=== PATIENT | female | born 1965 | race Caucasian/White ===

== ENCOUNTER 2017-04-12 14:27 | Emergency (ER) | payer OTHER ==
[~2017-04-12] VITALS: Ht 165.1 cm; Wt 72.2 kg
[~2017-04-12 14:27] MED LIST: ALLERGY RELIEF10 M5 PO; AMBIEN10 MG PO; CARBATROL-ER200 MG PO; CETIRIZINE HCL10 M2 PO; CHANTIX1 MG PO; CLONAZEPAM1 MG PO; DILANTIN100 MG PO; KLONOPIN1 MG PO; LEVETIRACETAM1000 MG PO; LEVETIRACETAM750 MG PO; LOVASTATIN40 MG PO; MIRALAX255 GM PO; OXYCODONE HCL10 MG PO; PERCOCET 5/31 TABLET PO; PREDNISONE10 MG PO; PREMPRO 0.621 TABLET PO; RANITIDINE HCL150 MG PO; SINGULAIR10 MG PO; SUMATRIPTAN SU100 MG PO; TEGRETOL-XR,CA200 MG PO; TEGRETOL200 MG PO; TOPIRAMATE200 MG PO; VALIUM5 MG PO; VITAMIN D-32000 UNI2 PO; VYVANSE30 MG PO; ZIPRASIDONE HCL40 MG PO; ZIPRASIDONE HCL80 MG PO; dilantin; geodon; topamax
[2017-04-12 15:39] LABS: ADD MIUA? NO; BILIRUBIN NEGATIVE; BLOOD NEGATIVE; COLOR STRAW ((YELLOW)); GLUCOSE (STRIP) NEGATIVE; KETONES NEGATIVE; LEUKOCYTES NEGATIVE; NITRITE NEGATIVE; PROTEIN (STRIP) NEGATIVE; SPECIFIC GRAVITY 1.004 (1.000-1.030); UROBILINOGEN 0.2 MG/DL (0.2-1.0)
[2017-04-12 16:48] LABS: HEMATOCRIT 38.5 % (36.0-46.0); MCH 31.1 PG (29.0-34.0); MCHC 34.3 G/DL (30.0-36.0); MCV 90.8 FL (83-99); MEAN PLAT.VOLUME 10.1 uM^3 (9.5-12.4); PLATELET COUNT 205 K/uL (156-360); RBC DIS.WIDTH-CV 12.9 % (11.8-14.6); RBC DIS.WIDTH-SD 42.7 % (39-53); RED BLOOD COUNT 4.24 M/uL (3.80-5.20); WHITE BLOOD COUNT 4.9 K/uL (4.1-10.2)
[2017-04-12 17:00] LABS: CHLORIDE 112 mEq/L (99-109); POTASSIUM 3.9 mEq/L (3.7-5.4); SODIUM 139 mEq/L (136-147)
[2017-04-12 17:03] LABS: GLUCOSE 84 mg/dL (70-99)
[2017-04-12 17:04] LABS: ANION GAP 15 MEQ/L (2-14)
[2017-04-12 17:05] LABS: TOTAL BILIRUBIN 0.3 mg/dL (0.0-1.0)
[2017-04-12 17:06] LABS: ALKALINE PHOSPHATASE 81 IU/L (3-129)
[2017-04-12 17:07] LABS: GFR ESTIMATE (CALCULATED) > 59 mL/min/
[2017-04-12 17:08] LABS: DIRECT BILIRUBIN 0.1 mg/dL (0.0-0.3); UREA NITROGEN (BUN) 8 mg/dL (9-23)
[2017-04-12 17:10] LABS: LIPASE 39 U/L (1.0-51.0)
[2017-04-12 17:18] LABS: QUANTITATIVE HCG < 4.0 MIU/ML
[2017-04-12] MEDS ORDERED: ZOFRAN ODT4 MG PO (17:28)
[2017-04-12] MEDS ORDERED: BENTYL10 MG PO (17:28)
[2017-04-12 18:38] VITALS: BP 98/62
== END 2017-04-12 18:39 | disposition home or self-care (01) ==
LOC: EME 14:27
PROVIDERS: Nurse Practitioner Family
DX: R10.11 Right upper quadrant pain (principal); R11.2 Nausea with vomiting, unspecified; N89.8 Other specified noninflammatory disorders of vagina; R30.0 Dysuria; B19.20 Unspecified viral hepatitis C without hepatic coma; K74.60 Unspecified cirrhosis of liver
CPT/HCPCS: 71020; 76705; 80053; 81003; 82248; 83690; 84702; 85027; 99281; 99283

== ENCOUNTER 2017-10-15 14:39 | Emergency (ER) | payer OTHER ==
[~2017-10-15] VITALS: Ht 165.1 cm; Wt 77.5 kg
[~2017-10-15 14:39] MED LIST changes: +ANTIVERT12.5 MG PO; +AVENTYL,PAMELOR25 MG PO; +BENTYL10 MG PO; +BUSPAR10 MG PO; +COMBIVENT RESPIM4 GM IH; +DESYREL100 MG PO; +IMITREX100 MG PO; +KEPPRA1000 MG PO; +KEPPRA250 MG PO; +PRILOSEC20 MG PO; +SYMBICORT60 INHALAT IH; +TEGRETOL-XR,CA400 MG PO; +VYVANSE70 MG PO; +WELLBUTRIN XL300 MG PO; +ZOFRAN ODT4 MG PO
[2017-10-15 15:26] LABS: HEMATOCRIT 43.2 % (36.0-46.0); HEMOGLOBIN 14.7 G/DL (11.9-15.5); MCH 31.2 PG (29.0-34.0); MCV 91.7 FL (83-99); PLATELET COUNT 241 K/uL (156-360); RBC DIS.WIDTH-CV 13.2 % (11.8-14.6); RBC DIS.WIDTH-SD 44.5 % (39-53); RED BLOOD COUNT 4.71 M/uL (3.80-5.20); WHITE BLOOD COUNT 6.8 K/uL (4.1-10.2)
[2017-10-15 15:36] LABS: ALBUMIN 4.1 g/dL (3.2-4.8)
[2017-10-15 15:37] LABS: CHLORIDE 107 mEq/L (99-109); SODIUM 139 mEq/L (136-147)
[2017-10-15 15:39] LABS: GLUCOSE 117 mg/dL (70-99); TOTAL PROTEIN 7.3 g/dL (6.4-8.3)
[2017-10-15 15:41] LABS: TOTAL BILIRUBIN 0.3 mg/dL (0.0-1.0)
[2017-10-15 15:42] LABS: ALKALINE PHOSPHATASE 105 IU/L (3-129)
[2017-10-15 15:43] LABS: CREATININE 0.7 mg/dL (0.6-1.3); GFR ESTIMATE (CALCULATED) > 59 mL/min/
[2017-10-15 15:44] LABS: AST (GOT) 24 IU/L (2-34); UREA NITROGEN (BUN) 10 mg/dL (9-23)
[2017-10-15 15:45] LABS: ALT (GPT) 21 IU/L (3-49)
[2017-10-15 15:46] LABS: LIPASE 13 U/L (1.0-51.0)
[2017-10-15 15:54] LABS: QUANTITATIVE HCG < 4.0 MIU/ML
[2017-10-15 16:50] LABS: DIRECT BILIRUBIN 0.1 mg/dL (0.0-0.3)
[2017-10-15 17:05] LABS: APPEARANCE CLEAR ((CLEAR)); BILIRUBIN NEGATIVE; BLOOD SMALL; COLOR STRAW ((YELLOW)); GLUCOSE (STRIP) NEGATIVE; KETONES NEGATIVE; LEUKOCYTES NEGATIVE; NITRITE NEGATIVE; PROTEIN (STRIP) NEGATIVE; SPECIFIC GRAVITY 1.008 (1.000-1.030); UROBILINOGEN 0.2 MG/DL (0.2-1.0)
[2017-10-15 17:08] LABS: BACTERIA RARE /HPF; EPITHELIAL CELLS RARE /HPF; MUCUS NONE SEEN /LPF; RED BLOOD CELLS 0-5 /HPF (0-5); UCUL ADDED? NO; WHITE BLOOD CELLS 0-5 /HPF (0-5)
[2017-10-15 18:25] LABS: AMPHETAMINE NEGATIVE (500 ng/mL); BARBITURATES NEGATIVE (200 ng/mL); BENZODIAZEPINES NEGATIVE (150 ng/mL); BUPRENORPHINE NEGATIVE (10 ng/mL); COCAINE NEGATIVE (150 ng/mL); METHADONE NEGATIVE (200 ng/mL); METHAMPHETAMINE NEGATIVE (500 ng/mL); OPIATES (MORPHINE) NEGATIVE (100 ng/mL); OXYCODONE NEGATIVE (100 ng/mL); PHENCYCLIDINE NEGATIVE (25 ng/mL); PROPOXYPHENE NEGATIVE (300 ng/mL); THC CANNABINOIDS NEGATIVE (50 ng/mL); TRICYCLIC ANTIDEPRESSANTS NEGATIVE (300 ng/mL)
[2017-10-15 20:27] VITALS: BP 127/69
== END 2017-10-15 20:28 | disposition home or self-care (01) ==
LOC: EME 14:39
DX: R10.11 Right upper quadrant pain (principal); G89.29 Other chronic pain; R11.0 Nausea; J44.9 Chronic obstructive pulmonary disease, unspecified; E78.5 Hyperlipidemia, unspecified; K21.9 Gastro-esophageal reflux disease without esophagitis; B19.20 Unspecified viral hepatitis C without hepatic coma; F17.200 Nicotine dependence, unspecified, uncomplicated; F32.9 Major depressive disorder, single episode, unspecified; F41.9 Anxiety disorder, unspecified; Z87.820 Personal history of traumatic brain injury; Z88.5 Allergy status to narcotic agent; Z88.0 Allergy status to penicillin
CPT/HCPCS: 74176; 76705; 80053; 81003; 82248; 83605; 83690; 84702; 85027; 99281; 99285; J1200; J2405; J3010; J7040

== ENCOUNTER → 2017-10-18 | Outpatient (CLI) | payer OTHER | END | disposition home or self-care (01) | LOC: AMB 08:25 | DX: K29.70 Gastritis, unspecified, without bleeding (principal); K22.10 Ulcer of esophagus without bleeding; D13.0 Benign neoplasm of esophagus; Z86.010 Personal history of colon polyps; B18.2 Chronic viral hepatitis C; J44.9 Chronic obstructive pulmonary disease, unspecified; E03.9 Hypothyroidism, unspecified; F10.20 Alcohol dependence, uncomplicated; E53.8 Deficiency of other specified B group vitamins; Z87.820 Personal history of traumatic brain injury; F17.200 Nicotine dependence, unspecified, uncomplicated; Z82.49 Family history of ischemic heart disease and other diseases of the circulatory system; Z80.3 Family history of malignant neoplasm of breast; Z79.891 Long term (current) use of opiate analgesic; Z88.0 Allergy status to penicillin; Z88.5 Allergy status to narcotic agent; Z88.8 Allergy status to other drugs, medicaments and biological substances | CPT/HCPCS: 88305; 88342 TC; J3010 ==

== ENCOUNTER → 2017-11-08 | Outpatient (CLI) | payer OTHER | END | disposition home or self-care (01) | LOC: NUC 08:06 | DX: R11.2 Nausea with vomiting, unspecified (principal) | CPT/HCPCS: 78264; A9541 ==

== ENCOUNTER → 2018-01-10 | Outpatient (CLI) | payer OTHER ==
[~2018-01-10] VITALS: Ht 165.1 cm; Wt 71.7 kg
[~2018-01-10] MED LIST changes: +PREVACID30 MG PO
== END | disposition home or self-care (01) ==
LOC: AMB 10:42
DX: Z12.11 Encounter for screening for malignant neoplasm of colon (principal); D12.3 Benign neoplasm of transverse colon; K63.5 Polyp of colon; Z86.010 Personal history of colon polyps; K64.8 Other hemorrhoids; K59.00 Constipation, unspecified; R14.0 Abdominal distension (gaseous); M19.90 Unspecified osteoarthritis, unspecified site; F31.9 Bipolar disorder, unspecified; B18.2 Chronic viral hepatitis C; J44.9 Chronic obstructive pulmonary disease, unspecified; F17.200 Nicotine dependence, unspecified, uncomplicated; F10.21 Alcohol dependence, in remission; K21.9 Gastro-esophageal reflux disease without esophagitis; E03.9 Hypothyroidism, unspecified; Z82.49 Family history of ischemic heart disease and other diseases of the circulatory system; Z83.3 Family history of diabetes mellitus; Z80.1 Family history of malignant neoplasm of trachea, bronchus and lung; Z80.3 Family history of malignant neoplasm of breast
CPT/HCPCS: 88305; J2250